=== PATIENT | female | born 2000 | race Caucasian/White ===

== ENCOUNTER 2022-12-22 15:55 | Emergency (ER) | payer OTHER, SELFPAY ==
--- NOTE | ~2022-12-22 | CT_ITS ---
EXAMINATION: CT abdomen pelvis wo con DATE: 12/22/2022 17:58 INDICATION: Left flank pain and hematuria TECHNIQUE: Computed tomography (CT) of the abdomen and pelvis was performed without intravenous contr ast. Automated exposure control and iterative reconstruction technique were employed. The dose-length product was 286.08 mGy-cm. COMPARISON: None FINDINGS: Lung bases are clear. Heart size is normal. No pericardial or pleural effusion. Liver, gallbladder, s pleen, pancreas and bilateral adrenal glands are normal. Kidneys and ureters are normal with no uroli thiasis, hydroureteronephrosis or perinephric/ureteral stranding. Bladder is normal. 1.5 cm left ovar karoline cyst/follicle. The anteverted uterus and right ovary are unremarkable. Small amount of likely phy siologic free fluid in the cul-de-sac. Bowels including the appendix are normal. No pathologically en larged abdominal or pelvic lymphadenopathy. Mild lumbar and lower thoracic spondylosis. IMPRESSION: 1. No urolithiasis or other acute intra-abdominal/pelvic process. Reviewed, dictated and finalized at location A.
[2022-12-22 15:58] VITALS: BP 133/69; PULSE 78; RESP 16; TEMP 36.4; O2SAT 100
[2022-12-22 16:36] VITALS: BP 127/94; PULSE 72; RESP 20; O2SAT 100
--- NOTE | 2022-12-22 16:38 | ED.ABDPAIN ---
HPI - Abdominal Pain General Chief Complaint: Abdominal Pain Stated Complaint: left flank pain Time Seen by Provider: 12/22/22 16:10 History of Present Illness HPI narrative: 22-year-old female presented to the emergency department for evaluation of left flank pain. Patient began having urinary symptoms on Saturday and was started on antibiotics for urinary tract infection on Saturday. Patient reports that her symptoms did improve but over the course of the day yesterday and through today she began developing some left flank pain. Patient denies any current nausea or vomiting. Patient denies any current urinary symptoms. Patient denies any vaginal bleeding or vaginal discharge. Related Data Allergies Allergy/AdvReac Type Severity Reaction Status Date / Time No Known Allergies Allergy Verified 12/22/22 16:34 Review of Systems Review of Systems: All systems reviewed & are unremarkable except as noted in HPI and below Exam Narrative: APPEARANCE: Well appearing, no pain, no distress, well-nourished. HEAD: normocephalic, atraumatic. EYES: PERRLA/EOMI, conjunctivae clear. NOSE: Normal no drainage NECK: Supple. No adenopathy, no masses. RESPIRATORY: Airway patent, respirations nonlabored. Clear to auscultation bilaterally, no rales, rhonchi, wheezing. CARDIOVASCULAR: Regular rate and rhythm without murmurs rubs or gallops. ABDOMINAL: Soft, nontender, left CVA tenderness to palpation MUSCULOSKELETAL: Moves all extremities. Strength/ROM intact, No edema, No calf tenderness. NEURO: Alert. Cranial nerves II through XII intact. Grossly intact SKIN: Warm, dry. Normal Color Course Course Emergency Course: 22-year-old female present to the emergency department for evaluation of left flank pain. Patient is currently being treated for urinary tract infection. Patient is afebrile with no leukocytosis and a stable hemoglobin. Patient's CMP shows no acute abnormalities. UA did show some elevated white blood cells. CT scan showed no explanation for the patient's symptoms. Patient was encouraged to take Tylenol and Profen for pain control and to continue taking her antibiotics. Vital Signs Vital signs: Vital Signs Temperature 97.6 F 12/22/22 15:58 Pulse Rate 78 12/22/22 15:58 Respiratory Rate 16 12/22/22 15:58 Blood Pressure 133/69 12/22/22 15:58 Pulse Oximetry 100 12/22/22 15:58 Oxygen Delivery Room Air 10/14/23 15:58 Temperature 97.6 F 12/22/22 15:58 Pulse Rate 71 12/22/22 18:31 Respiratory Rate 18 12/22/22 18:31 Blood Pressure 121/76 12/22/22 18:31 Pulse Oximetry 99 12/22/22 18:31 Oxygen Delivery Room Air 12/22/22 15:58 MDM - Abdominal Pain Differential Diagnosis Differential diagnosis: Likely abdominal pain, acute appendicitis, calculus of kidney, constipation, diverticulitis, pancreatitis and small bowel obstruction Lab Data Attestation: I reviewed the patient's lab results. 12/22/22 16:31 12/22/22 16:31 Labs: Lab Results 12/22/22 12/22/22 Range/Units 16:31 16:32 WBC 8.9 (4.5-10.0) K/mm3 RBC 4.67 (4.2-5.4) M/mm3 Hgb 14.2 (12.0-15.0) g/dL Hct 42.1 (37.0-47.0) % MCV 90.1 (80-100) fl MCH 30.4 (26-34) pg MCHC 33.7 (32-36) g/dl RDW 11.8 (11.5-14.5) % Plt Count 241 (150-375) k/mm3 MPV 10.6 H (7.4-10.4) fl Immature Gran % (Auto) 0.3 (0-0.5) % Neut % (Auto) 69.0 (45.5-73.1) % Lymph % (Auto) 23.7 (18.3-44.2) % [place] % (Auto) 5.6 (2.6-8.5) % Eos % (Auto) 1.1 (0-4.4) % Baso % (Auto) 0.3 (0.2-1.2) % Lymph # (Auto) 2.11 (0.9-3.2) K/mm3 [place] # (Auto) 0.5 (0.1-0.6) K/mm3 Eos # (Auto) 0.1 (0-0.3) K/mm3 Baso # (Auto) 0.0 (0.0-0.1) K/mm3 Abs Immat Gran (auto) 0.03 (0.00-0.031) K/mm3 Absolute Neuts (auto) 6.2 (1.3-6.7) K/mm3 Absolute Nucleated RBC 0.0 (0.0-0.012) K/mm3 Nucleated RBC % 0.0 (0.0-0.2) % Sodium 137 (137-145) mmol/L Potassium 3.7 (3.4-5
[2022-12-22 16:39] LABS: Basophils Percent Auto 0.3 % (0.2-1.2); Eosinophils Absolute Auto 0.1 K/mm3 (0-0.3); Eosinophils Percent Auto 1.1 % (0-4.4); Hematocrit 42.1 % (37.0-47.0); Hemoglobin 14.2 g/dL (12.0-15.0); Immature Granulocyte Absolute 0.03 K/mm3 (0.00-0.031); Immature Granulocyte Percent A 0.3 % (0-0.5); Lymphocytes Absolute Auto 2.11 K/mm3 (0.9-3.2); Lymphocytes Percent Auto 23.7 % (18.3-44.2); Mean Corpuscular HGB Conc 33.7 g/dl (32-36); Mean Corpuscular Hemoglobin 30.4 pg (26-34); Mean Corpuscular Volume 90.1 fl (80-100); Mean Platelet Volume 10.6 fl (7.4-10.4); Monocytes Absolute Auto 0.5 K/mm3 (0.1-0.6); Monocytes Percent Auto 5.6 % (2.6-8.5); Neutrophils Absolute Auto 6.2 K/mm3 (1.3-6.7); Platelet Count Result 241 k/mm3 (150-375); Red Blood Count 4.67 M/mm3 (4.2-5.4); Red Cell Distribution Width 11.8 % (11.5-14.5); White Blood Count 8.9 K/mm3 (4.5-10.0)
[2022-12-22 16:45] LABS: Appearance Urine Cloudy (Clear); Bacteria Urine None Seen /hpf; Bilirubin Urine Negative (Negative); Blood Urine Negative (Negative); Color Urine Yellow (Yellow); Glucose Urine UA Negative (Negative); Ketones Urine Negative (Negative); Leukocyte Esterase Ur Trace LEU/UL (Negative); Nitrate Urine Negative (Negative); Non Pathogenic Casts 0-2; Protein Urine Negative (Negative); RBC Urine 0-2 /hpf (0-2); Specific Grav Ur 1.015 (1.001-1.035); Squamous Epithelial Cell Urine Occasional /hpf (Few); Urobilinogen Urine 0.2 mg/dL (<2.0); pH Urine 5.5 (5.0-9.0)
[2022-12-22 17:00] LABS: Alanine Aminotransferase 14 U/L (6-35); Albumin Level 4.6 g/dL (3.5-5.1); Alkaline Phosphatase 70 U/L (38-126); Anion Gap 10 mmol/L (8-16); Aspartate Amino Transferase 21 U/L (14-36); Bilirubin,Total 1.1 mg/dL (0.2-1.3); Blood Urea Nitrogen 7 mg/dL (7-17); Calcium 9.1 mg/dL (8.4-10.2); Carbon Dioxide 25 mmol/L (22-30); Chloride 102 mmol/L (98-107); Estimated CRCL calculation 123 ml/min; Estimated Glomerular Filt Rate > 60; Glucose 92 mg/dL (65-110); Lipase 82 U/L (23-300); Potassium 3.7 mmol/L (3.4-5.0); Sodium 137 mmol/L (137-145)
[2022-12-22 17:14] LABS: Add Urine Microscopic? YES
[2022-12-22] MEDS: KETOROLAC 15 MG/ML VIAL (*BKC) IV PUSH (18:18)
[2022-12-22 18:31] VITALS: BP 121/76; PULSE 71; RESP 18; O2SAT 99
== END 2022-12-22 18:31 | disposition home or self-care (01) ==
PROVIDERS: Physician Assistant; Emergency Provider Emergency Medicine
DX: R10.9 Unspecified abdominal pain (principal)
CPT/HCPCS: 36415; 74176; 80053; 81001; 81025; 83690; 85025; 87086; 96374; 99284; J1885